=== PATIENT | female | born 1965 | race African-American/Black ===

== ENCOUNTER 2022-12-06 17:20 | Emergency (ER) | payer BC ==
[~2022-12-06] VITALS: Ht 162.6 cm; Wt 80.0 kg
[2022-12-06] MEDS ORDERED: NAPR-681 MT (18:32)
== END 2022-12-06 18:44 ==
LOC: ER 17:20
DX: M65.9 Synovitis and tenosynovitis, unspecified (principal); J45.909 Unspecified asthma, uncomplicated
CPT/HCPCS: 29125; 73110; 99283